=== PATIENT | female | born 1960 | race African-American/Black ===

== ENCOUNTER 2019-07-24 19:00 | Emergency (ER) | payer MEDICAID ==
[~2019-07-24] VITALS: Ht 172.7 cm; Wt 67.0 kg
[2019-07-25] MEDS ORDERED: ONDANSETRON HCL 4MG/2ML INJ IV STA (00:35)
[2019-07-25] MEDS ORDERED: MORPHINE SULFATE 4 MG/ML CPJ (NOT FOR IM USE) IV STA (00:35)
[2019-07-25] MEDS ORDERED: SODIUM CHLORIDE 0.9% 1,000 ML IV ONE (00:45)
[2019-07-25 01:10] LABS: BASOPHILS % 0.8 % (0.0-2.0); EOSINOPHILS % 6.9 % (0.0-5.0); HEMATOCRIT. 39.1 % (36.0-48.0); HEMOGLOBIN. 12.9 g/dL (12.0-16.0); LYMPHOCYTES % 25.6 % (20.0-50.0); MEAN CORPUSCULAR HEMOGLOBIN 26.5 pg (28.0-32.0); MEAN CORPUSCULAR VOLUME 80.1 fL (81.0-99.0); MONOCYTES % 5.5 % (2.0-8.0); NEUTROPHILS % 61.2 % (40.0-76.0); PLATELET 254 x1000/uL (130-400); RED BLOOD CELL COUNT 4.88 mill/uL (4.2-5.4)
[2019-07-25 01:14] LABS: CHLORIDE 108 mEq/L (98-107)
[2019-07-25 01:18] LABS: INR 0.9; PARTIAL THROMBOPLASTIN TIME 30.2 sec (23.4-31.0); PROTHROMBIN TIME 9.4 sec (9.6-11.0)
[2019-07-25 01:21] LABS: ETHANOL BLOOD < 10 mg/dL
[2019-07-25 01:51] LABS: *COCAINE SCREEN URINE NEGATIVE (NEGATIVE)
[2019-07-25 01:52] LABS: *AMPHETAMINES SCREEN URINE NEGATIVE (NEGATIVE); *BARBITURATES SCREEN URINE NEGATIVE (NEGATIVE); CANNABINOID URINE SCREEN NEGATIVE (NEGATIVE); METHADONE URINE SCREEN NEGATIVE (NEGATIVE); OPIATES URINE SCREEN NEGATIVE (NEGATIVE); PHENCYCLIDINE URINE SCREEN NEGATIVE (NEGATIVE)
[2019-07-25 01:53] LABS: *BENZODIAZEPINES SCREEN URINE NEGATIVE (NEGATIVE)
[2019-07-25 06:47] VITALS: BP 121/81
== END 2019-07-25 06:50 | disposition home or self-care (01) ==
LOC: ER 19:00
DX: M79.18 Myalgia, other site (principal); F17.290 Nicotine dependence, other tobacco product, uncomplicated; J45.909 Unspecified asthma, uncomplicated; F32.9 Major depressive disorder, single episode, unspecified; I10 Essential (primary) hypertension; Z98.890 Other specified postprocedural states; Z88.2 Allergy status to sulfonamides
CPT/HCPCS: 36415; 71045; 80053; 80305; 80320; 83605; 83880; 84484; 85025; 85044; 85610; 85730; 87804; 93005; 96374; 96375; 99284; J2270; J2405; J7030; G0480

== ENCOUNTER 2019-08-12 14:01 | Emergency (ER) | payer MEDICAID, OTHER ==
[~2019-08-12] VITALS: Ht 165.1 cm; Wt 86.5 kg
[2019-08-12 14:39] LABS: CLARITY URINE CLEAR (CLEAR); COLOR URINE YELLOW (YELLOW); KETONES URINE NEGATIVE (NEGATIVE); LEUKOCYTE ESTERASE URINE TRACE (NEGATIVE); NITRITE URINE NEGATIVE (NEGATIVE); OCCULT BLOOD URINE NEGATIVE (NEGATIVE); PH URINE 5.5 (4.5-8.0); PROTEIN URINE NEGATIVE (NEGATIVE); SPECIFIC GRAVITY URINE 1.016 (1.005-1.030); UROBILINOGEN URINE 0.2 E.U./dL (0.2-1.0)
[2019-08-12 16:21] LABS: *AMPHETAMINES SCREEN URINE NEGATIVE (NEGATIVE)
[2019-08-12 16:22] LABS: *BENZODIAZEPINES SCREEN URINE NEGATIVE (NEGATIVE); *COCAINE SCREEN URINE NEGATIVE (NEGATIVE); METHADONE URINE SCREEN NEGATIVE (NEGATIVE); OPIATES URINE SCREEN NEGATIVE (NEGATIVE)
[2019-08-12 16:23] LABS: *BARBITURATES SCREEN URINE NEGATIVE (NEGATIVE); PHENCYCLIDINE URINE SCREEN NEGATIVE (NEGATIVE)
[2019-08-12 16:24] LABS: CANNABINOID URINE SCREEN NEGATIVE (NEGATIVE)
[2019-08-12 16:44] LABS: BASOPHILS % 0.5 % (0.0-2.0); EOSINOPHILS % 11.2 % (0.0-5.0); HEMATOCRIT. 38.4 % (36.0-48.0); HEMOGLOBIN. 12.9 g/dL (12.0-16.0); LYMPHOCYTES % 27.5 % (20.0-50.0); MEAN CORPUSCULAR HEMOGLOBIN 27.1 pg (28.0-32.0); MEAN CORPUSCULAR VOLUME 80.7 fL (81.0-99.0); MEAN PLATELET VOLUME 8.7 fl (7.4-10.4); MONOCYTES % 6.2 % (2.0-8.0); NEUTROPHILS % 54.6 % (40.0-76.0); PLATELET 242 x1000/uL (130-400); RED BLOOD CELL COUNT 4.75 mill/uL (4.2-5.4); RED CELL DISTRIBUTION WIDTH 15.5 % (11.6-14.6)
[2019-08-12 16:49] LABS: CHLORIDE 110 mEq/L (98-107)
[2019-08-12 16:53] LABS: ETHANOL BLOOD < 10 mg/dL
[2019-08-12] MEDS ORDERED: ONDANSETRON HCL 4MG/2ML INJ IV ONE (23:30)
[2019-08-12] MEDS ORDERED: SODIUM CHLORIDE 0.9% 500 ML IV ONE (23:30)
[2019-08-12] MEDS ORDERED: KETOROLAC 30MG/ML VIAL IV ONE (23:30)
[2019-08-13 02:07] VITALS: BP 131/75
== END 2019-08-13 02:28 | disposition home or self-care (01) ==
LOC: ER 14:01
DX: K80.20 Calculus of gallbladder without cholecystitis without obstruction (principal); K31.9 Disease of stomach and duodenum, unspecified; J45.909 Unspecified asthma, uncomplicated; F32.9 Major depressive disorder, single episode, unspecified; I10 Essential (primary) hypertension; Z98.890 Other specified postprocedural states; Z88.5 Allergy status to narcotic agent
CPT/HCPCS: 36415; 74176; 80053; 80305; 80320; 81003; 83690; 84484; 85025; 93005; 96374; 96375; 99285; J1885; J2405; J7040; G0480

== ENCOUNTER 2024-07-15 12:08 | Inpatient (IN) | payer MEDICAID ==
[~2024-07-15] VITALS: Ht 172.7 cm; Wt 74.5 kg
[~2024-07-15 12:08] MED LIST: AMLO10TA80 PO; ATOR40TA70 PO; DIVA125C2 PO; HYDR25TA PO; HYDR50TA39 PO; LOSA100T33 PO; P20 PO
[2024-07-15] MEDS ORDERED: SODIUM CHLORIDE 10% FOR INH 15ML NEB INH SCH (12:30)
[2024-07-15 12:39] VITALS: PULSE 111; RESP 19; O2SAT 97
[2024-07-15] MEDS: IPRATROPIUM/ALBUTEROL 0.5-3(2.5)MG/3ML NEB HHN ONE (12:39)
[2024-07-15] MEDS: ALBUTEROL (0.083%) 2.5MG/3ML NEB HHN ONE (12:39)
[2024-07-15] MEDS: METHYLPREDNISOLONE SOD SUCC 125MG/2ML (ACT-O-VIAL) IV ONE (13:08)
[2024-07-15] MEDS: SODIUM CHLORIDE 0.9% 1,000 ML IV ONE (13:09)
[2024-07-15] MEDS: MORPHINE SULFATE 4 MG/ML INJ (FOR IV/IM USE) IV ONE ×2 (13:09→16:33)
[2024-07-15] MEDS: CEFTRIAXONE 1GM/50ML 50 ML IV ONE (13:10)
[2024-07-15] MEDS ORDERED: HYDROMORPHONE HCL/PF 2MG/ML INJ IV ONE (13:45)
[2024-07-15] MEDS ORDERED: BUDESONIDE 0.5MG/2ML NEB HHN ONE (13:45)
[2024-07-15] MEDS ORDERED: ALBUTEROL (0.083%) 2.5MG/3ML NEB HHN ONE (13:45)
[2024-07-15] MEDS ORDERED: HYDROMORPHONE HCL/PF 1MG/ML INJ IV NR (13:45)
[2024-07-15 13:53] LABS: BASOPHILS % 0.3 % (0.0-2.0); DIFFERENTIAL COMMENT 0; EOSINOPHILS % 0.2 % (0.0-5.0); HEMATOCRIT. 38.9 % (36.0-48.0); HEMOGLOBIN. 12.5 g/dL (12.0-16.0); LYMPHOCYTES % 10.9 % (20.0-50.0); MEAN CORPUSCULAR HEMOGLOBIN 25.9 pg (28.0-32.0); MEAN CORPUSCULAR HGB CONC 32.1 g/dL (31.0-37.0); MEAN CORPUSCULAR VOLUME 80.6 fL (81.0-99.0); MEAN PLATELET VOLUME 9.8 fl (7.4-10.4); MONOCYTES % 5.3 % (2.0-8.0); NEUTROPHILS % 83.3 % (40.0-76.0); PLATELET 337 x1000/uL (130-400); RED BLOOD CELL COUNT 4.83 mill/uL (4.2-5.4); RED CELL DISTRIBUTION WIDTH 15.4 % (11.6-14.6); WHITE BLOOD COUNT 25.1 x1000/uL (4.5-11.0)
[2024-07-15 13:58] VITALS: RESP 30
[2024-07-15 14:30] LABS: CHLORIDE 97 mEq/L (98-107); POTASSIUM 4.5 mEq/L (3.5-5.1); SODIUM 136 mEq/L (136-145)
[2024-07-15 14:31] LABS: CARBON DIOXIDE 31 mEq/L (21-32)
[2024-07-15 14:32] LABS: CALCIUM 9.8 mg/dL (8.7-10.4)
[2024-07-15 14:36] LABS: CREATININE 1.5 mg/dL (0.6-1.0); GLUCOSE 183 mg/dL (70-105); UREA NITROGEN BLOOD 30 mg/dL (9-23)
[2024-07-15 14:37] LABS: TROPONIN I HIGH SENSITIVITY 16 ng/L (3.0-34)
[2024-07-15] MEDS: AZITHROMYCIN 500MG/250ML 250 ML IV SCH (14:49)
[2024-07-15] MEDS: GUAIFENESIN/CODEINE 200-20MG/10ML UDC PO ONE (14:49)
[2024-07-15] MEDS ORDERED: CLONIDINE 0.1MG TABLET PO PRN (17:45)
[2024-07-15] MEDS ORDERED: MAGNESIUM/ALUMINUM HYDROXIDE/SIMETHICONE 30ML UDC PO PRN (17:45)
[2024-07-15] MEDS ORDERED: DOCUSATE SODIUM 100MG CAPSULE PO PRN (17:45)
[2024-07-15] MEDS ORDERED: ACETAMINOPHEN 325MG TABLET PO PRN ×2 (17:45)
[2024-07-15] MEDS ORDERED: ONDANSETRON HCL 4MG/2ML INJ IV PRN (17:45)
[2024-07-15] MEDS ORDERED: IPRATROPIUM/ALBUTEROL 0.5-3(2.5)MG/3ML NEB HHN PRN (17:45)
[2024-07-15] MEDS ORDERED: DEXTROSE 50% WATER 50ML SYRINGE IV PRN ×2 (17:45→20:45)
[2024-07-15] MEDS ORDERED: GLIP5TAB22 (18:00)
[2024-07-15] MEDS ORDERED: METHYLPREDNISOLONE SOD SUCC 40MG/ML (ACT-O-VIAL) IV SCH (18:00)
[2024-07-15] MEDS ORDERED: METF-414 (18:00)
[2024-07-15] MEDS ORDERED: INSULIN LISPRO 100 UNITS/ML SUBCUT SCH (18:04)
[2024-07-15] MEDS ORDERED: NALOXONE HCL 0.4MG/ML VIAL IV PRN (19:00)
[2024-07-15 20:00] VITALS: BP 128/91; PULSE 99; RESP 20; TEMP 36.55848; O2SAT 97
[2024-07-15] MEDS: IPRATROPIUM/ALBUTEROL 0.5-3(2.5)MG/3ML NEB HHN SCH (20:01)
[2024-07-15] MEDS: BLOOD SUGAR DIAGNOSTIC STRIP TEST SCH (20:29)
[2024-07-15] MEDS: ENOXAPARIN 30MG/0.3ML SYR SUBCUT SCH (20:30)
[2024-07-15] MEDS ORDERED: MORPHINE SULFATE 2 MG/ML INJ (NOT FOR IM USE) IV PRN (20:45)
[2024-07-15] MEDS: HYDROCODONE/ACETAMINOPHEN 10/325MG TABLET PO PRN (20:49)
[2024-07-15] MEDS: INSULIN LISPRO 100 UNITS/ML SUBCUT SCH (20:51)
[2024-07-16] VITALS (9 sets, daily range): BP systolic 121–143; BP diastolic 65–92; PULSE 53–103; RESP 16–20; TEMP 35.89176–36.72516; O2SAT 95–100
[2024-07-16] MEDS: KETOROLAC 30MG/ML VIAL IV PRN (00:51)
[2024-07-16] MEDS: ATORVASTATIN CALCIUM 40MG TABLET PO SCH (09:42)
[2024-07-16] MEDS: CEFTRIAXONE 1GM/50ML 50 ML IV SCH (09:42)
[2024-07-16] MEDS: HYDROCHLOROTHIAZIDE 25MG TABLET PO SCH (09:42)
[2024-07-16] MEDS: AMLODIPINE 10MG TABLET PO SCH (09:43)
[2024-07-16] MEDS: PANTOPRAZOLE SODIUM 40 MG/VIAL IV SCH (09:45)
[2024-07-16] MEDS: HYDROCODONE/ACETAMINOPHEN 10/325MG TABLET PO PRN (10:39)
[2024-07-16] MEDS: SODIUM CHLORIDE 0.9% 1,000 ML IV SCH (10:40)
[2024-07-16 10:54] LABS: CHLORIDE 96 mEq/L (98-107); POTASSIUM 5.4 mEq/L (3.5-5.1); SODIUM 133 mEq/L (136-145)
[2024-07-16 10:55] LABS: CALCIUM 9.4 mg/dL (8.7-10.4); CARBON DIOXIDE 28 mEq/L (21-32)
[2024-07-16 11:00] LABS: CREATININE 1.8 mg/dL (0.6-1.0); GLUCOSE 114 mg/dL (70-105); TRIGLYCERIDE 133 mg/dL (0-150); UREA NITROGEN BLOOD 50 mg/dL (9-23)
[2024-07-16 11:01] LABS: LDL CHOLESTEROL 67 mg/dL (5-100)
[2024-07-16 11:02] LABS: ALANINE AMINOTRANSFERASE 32 IU/L (10-49); ALBUMIN 4.2 g/dL (3.2-4.8); ASPARTATE AMINOTRANSFERASE 11 IU/L (<34); BILIRUBIN TOTAL 0.2 mg/dL (0.1-1.0); CHOLESTEROL 144 mg/dL (<200); HDL CHOLESTEROL 48 mg/dL (>65); HEMATOCRIT. 36.1 % (36.0-48.0); HEMOGLOBIN. 11.6 g/dL (12.0-16.0); MEAN CORPUSCULAR HEMOGLOBIN 25.8 pg (28.0-32.0); MEAN CORPUSCULAR HGB CONC 32.2 g/dL (31.0-37.0); MEAN PLATELET VOLUME 9.3 fl (7.4-10.4); PLATELET 330 x1000/uL (130-400); PROTEIN TOTAL 6.9 g/dL (6.0-8.3); RED BLOOD CELL COUNT 4.51 mill/uL (4.2-5.4); RED CELL DISTRIBUTION WIDTH 15.4 % (11.6-14.6); WHITE BLOOD COUNT 29.4 x1000/uL (4.5-11.0)
[2024-07-16 11:03] LABS: T4 FREE 1.19 ng/dL (0.89-1.76); THYROID STIMULATING HORMONE 0.95 uIU/mL (0.55-4.78)
[2024-07-16 11:10] LABS: BILIRUBIN DIRECT < 0.1 mg/dL (<=3.0)
[2024-07-16 11:17] LABS: DIFFERENTIAL COMMENT 1
[2024-07-16] MEDS ORDERED: AZITHROMYCIN 500MG/250ML 250 ML IV SCH (15:00)
[2024-07-16] MEDS: AZITHROMYCIN 500MG/250ML 250 ML IV SCH (16:15)
[2024-07-16] MEDS: METHYLPREDNISOLONE SOD SUCC 40MG/ML (ACT-O-VIAL) IV SCH (21:16)
[2024-07-17] VITALS (7 sets, daily range): BP systolic 103–149; BP diastolic 72–99; PULSE 81–97; RESP 16–20; TEMP 36.28068–36.50292; O2SAT 96–100
[2024-07-17] MEDS: GUAIFENESIN 200MG/10ML SUGAR FREE UDC PO PRN (02:17)
[2024-07-17] MEDS ORDERED: IPRA3AMP9 HHN (14:28)
[2024-07-17 16:50] LABS: ANISOCYTOSIS 1+; PLATELET ESTIMATE NORMAL
[2024-07-18] MEDS ORDERED: FAMOTIDINE 20MG/2ML VIAL IV SCH (09:00)
== END 2024-07-17 14:30 | disposition home or self-care (01) | DRG 720 ==
LOC: ER 12:08 → 5WST 15:32 → EDBEDREQ 15:38
PROVIDERS: ADMIT Internal Medicine; ATTEND Internal Medicine
PROC: 5A09357 Assistance with Respiratory Ventilation, Less than 24 Consecutive Hours, Continuous Positive Airway Pressure (ICD-10-PCS; principal; 2024-07-15)
DX: A41.9 Sepsis, unspecified organism (principal); J96.21 Acute and chronic respiratory failure with hypoxia; I13.0 Hypertensive heart and chronic kidney disease with heart failure and stage 1 through stage 4 chronic kidney disease, or unspecified chronic kidney disease; J18.9 Pneumonia, unspecified organism; N17.9 Acute kidney failure, unspecified; D57.1 Sickle-cell disease without crisis; E66.2 Morbid (severe) obesity with alveolar hypoventilation; E11.22 Type 2 diabetes mellitus with diabetic chronic kidney disease; I50.42 Chronic combined systolic (congestive) and diastolic (congestive) heart failure; Z20.822 Contact with and (suspected) exposure to COVID-19; E11.65 Type 2 diabetes mellitus with hyperglycemia; E87.5 Hyperkalemia; J44.0 Chronic obstructive pulmonary disease with (acute) lower respiratory infection; J44.1 Chronic obstructive pulmonary disease with (acute) exacerbation; N18.31 Chronic kidney disease, stage 3a; F19.10 Other psychoactive substance abuse, uncomplicated; E78.5 Hyperlipidemia, unspecified; T38.0X5A Adverse effect of glucocorticoids and synthetic analogues, initial encounter; Z68.33 Body mass index [BMI] 33.0-33.9, adult; Z87.891 Personal history of nicotine dependence; Z79.4 Long term (current) use of insulin; Z79.899 Other long term (current) drug therapy; Z88.5 Allergy status to narcotic agent; Z68.25 Body mass index [BMI] 25.0-25.9, adult; Y92.89 Other specified places as the place of occurrence of the external cause
CPT/HCPCS: 36415; 71045; 80048; 80061; 80076; 82962; 83036; 83605; 83735; 83880; 84145; 84439; 84443; 84484; 85025; 85044; 85379; 86850; 86900; 87426; 87804; 93005; 94070; 94640; 94660; 94664; 98960; 99291; J0456; J0696; J1171; J1650; J1815; J1885; J2270; J2470; J2919; J2920; J7030; J7131

== ENCOUNTER 2024-10-01 23:19 | Emergency (ER) | payer MEDICAID ==
[~2024-10-01] VITALS: Ht 167.6 cm; Wt 66.0 kg
[~2024-10-01 23:19] MED LIST changes: +GLIP5TAB22; +IPRA3AMP9 HHN; +METF-414
[2024-10-01 23:29] VITALS: TEMP 36.9; O2SAT 100
[2024-10-02] MEDS: ACETAMINOPHEN 325MG TABLET PO ONE
[2024-10-02] MEDS: KETOROLAC 15MG/ML VIAL IM ONE
[2024-10-02 01:26] VITALS: BP 140/80; PULSE 86; RESP 16
[2024-10-02] MEDS: ACETAMINOPHEN 325MG TABLET PO NR (01:26)
[2024-10-02] MEDS: KETOROLAC 15MG/ML VIAL IM NR (01:26)
[2024-10-02] MEDS ORDERED: LIDO1ADH14 TP (01:53)
== END 2024-10-02 02:56 | disposition home or self-care (01) ==
LOC: ER 23:19
DX: M54.50 Low back pain, unspecified (principal); E11.9 Type 2 diabetes mellitus without complications; I10 Essential (primary) hypertension; J44.89 Other specified chronic obstructive pulmonary disease; F32.A Depression, unspecified; Z88.5 Allergy status to narcotic agent; Z79.899 Other long term (current) drug therapy; W19.XXXA Unspecified fall, initial encounter; Y93.89 Activity, other specified; Y92.89 Other specified places as the place of occurrence of the external cause; Y99.8 Other external cause status
CPT/HCPCS: 99285; 72131; 96372; J1885

== ENCOUNTER 2025-06-13 19:23 | Emergency (ER) | payer MEDICAID ==
[~2025-06-13] VITALS: Ht 165.1 cm; Wt 75.0 kg
[~2025-06-13 19:23] MED LIST changes: +LIDO1ADH14 TP
[2025-06-13 19:33] VITALS: O2SAT 97
[2025-06-13] MEDS ORDERED: HYDROMORPHONE HCL/PF 2MG/ML INJ IV ONE (19:45)
[2025-06-13] MEDS: KETOROLAC 15MG/ML VIAL IV ONE (20:05)
[2025-06-13 20:19] LABS: BASOPHILS % 0.6 % (0.0-2.0); EOSINOPHILS % 2.8 % (0.0-5.0); HEMATOCRIT. 35.1 % (36.0-48.0); HEMOGLOBIN. 11.3 g/dL (12.0-16.0); LYMPHOCYTES % 21.6 % (20.0-50.0); MEAN PLATELET VOLUME 8.9 fl (7.4-10.4); MONOCYTES % 7.5 % (2.0-8.0); NEUTROPHILS % 67.5 % (40.0-76.0); PLATELET 232 x1000/uL (130-400); RED BLOOD CELL COUNT 4.40 mill/uL (4.2-5.4); RED CELL DISTRIBUTION WIDTH 16.5 % (11.6-14.6)
[2025-06-13 20:34] LABS: INR 0.9
[2025-06-13 20:35] LABS: CREATININE 1.6 mg/dL (0.6-1.0); UREA NITROGEN BLOOD 21 mg/dL (9-23)
[2025-06-13 20:36] LABS: ASPARTATE AMINOTRANSFERASE 14 IU/L (<34); PROTEIN TOTAL 6.7 g/dL (6.0-8.3); TROPONIN I HIGH SENSITIVITY 34 ng/L (3.0-34)
[2025-06-13 20:37] LABS: BILIRUBIN DIRECT < 0.1 mg/dL (<=3.0); BILIRUBIN TOTAL 0.2 mg/dL (0.1-1.0)
[2025-06-13] MEDS: DIPHENHYDRAMINE 50MG/ML VIAL IV ONE (20:40)
[2025-06-13] MEDS: HYDROMORPHONE HCL/PF 1MG/ML INJ IV NR (20:40)
[2025-06-13] MEDS: SODIUM CHLORIDE 0.9% 1,000 ML IV ONE (20:44)
[2025-06-13 22:45] LABS: TROPONIN I HIGH SENSITIVITY 36 ng/L (3.0-34)
[2025-06-14] VITALS: BP 124/83; PULSE 85; RESP 15; TEMP 36.6; O2SAT 97
== END 2025-06-14 00:01 | disposition home or self-care (01) ==
LOC: ER 19:23 → CMPBEDREQ 06-14 00:15
DX: D57.00 Hb-SS disease with crisis, unspecified (principal); E11.9 Type 2 diabetes mellitus without complications; J44.89 Other specified chronic obstructive pulmonary disease; A41.9 Sepsis, unspecified organism; I10 Essential (primary) hypertension; Z88.5 Allergy status to narcotic agent; Z79.899 Other long term (current) drug therapy
CPT/HCPCS: 99285; 96374; 96375; 71045; 96361; 80076; 80048; 83690; 83735; 85025; 85044; 85610; 84484; 36415; 93005; J1885; J1200; J1171; J7030